=== PATIENT | female | born 1995 | race Asian ===

== ENCOUNTER 2019-02-05 07:06 | Inpatient (IN) | payer BC ==
[2019-02-05 07:42] VITALS: BMI 24.7
[2019-02-05] MEDS ORDERED: Ondansetron PF 4 MG/2 ML Vial IVP PRN ×4 (07:56→19:41)
[2019-02-05] MEDS ORDERED: Acetaminophen 500 MG TAB PO PRN (07:56)
[2019-02-05] MEDS ORDERED: Methylergonovine 0.2 MG/ML VIAL IM PRN (07:56)
[2019-02-05] MEDS ORDERED: NS / Oxytocin 40 units/1000ml 1,000 ML IV PRN (07:56)
[2019-02-05] MEDS ORDERED: Lidocaine 1% (PF) 30 ML VIAL SC PRN (07:56)
[2019-02-05] MEDS ORDERED: Diphenoxylate HCl/Atropine Tablet PO PRN ×2 (07:56)
[2019-02-05] MEDS ORDERED: Butorphanol Tartrate 1 MG/ML VIAL SLOW IVP PRN (07:56)
[2019-02-05] MEDS ORDERED: Ibuprofen 800 MG TAB PO PRN (07:56)
[2019-02-05] MEDS ORDERED: Carboprost 250 MCG/ML AMP IM PRN (07:56)
[2019-02-05] MEDS ORDERED: Misoprostol 200 MCG TAB PR PRN (07:56)
[2019-02-05] MEDS ORDERED: HYDROcodone/Acetaminophen 5/325 mg Tablet PO PRN ×4 (07:56→19:41)
[2019-02-05] MEDS ORDERED: Promethazine HCl 25 MG/ML VIAL IM PRN ×4 (07:56→19:41)
[2019-02-05] MEDS: Lactated Ringer's 1,000 ML IV SCH ×2 (08:30→10:03)
[2019-02-05 08:49] LABS: Hemoglobin 13.9 g/dL (12.0-16.0); Mean Corpuscular HGB CONC 33.7 g/dL (32.0-36.0); Mean Corpuscular Hemoglobin 31.1 pg (27.0-31.0); Mean Corpuscular Volume 92.5 fL (78.0-98.0); Mean Platelet Volume 9.5 fL (7.4-10.4); Platelet Count 202 thou/uL (130-400); RBC Distribution Width 12.2 % (11.5-14.5); Red Blood Cell (RBC) Count 4.46 mill/uL (4.20-5.40); White Blood Cell (WBC) Count 15.9 thou/uL (4.8-10.8)
[2019-02-05] MEDS ORDERED: Fentanyl 4 mcg/Bup 0.1% Cadd 100 ML ONE (09:02)
[2019-02-05 09:25] LABS: HBSAg Index 0.26 S/CO (0-0.99); Hep B Surf Ag Non-Reactive S/CO (NonReactive); Syphilis Antibody Nonreactive (Nonreactive); Syphilis Antibody Index 0.03 S/CO (<1.00 Non-Reactive)
[2019-02-05] MEDS ORDERED: Lidocaine 1.5%/Epinephrine 1:200,000 5 ML AMPUL IJ ONE (11:08)
[2019-02-05] MEDS ORDERED: diphenhydrAMINE 50 MG/ML VIAL IVP PRN ×2 (12:02→17:20)
[2019-02-05] MEDS ORDERED: Naloxone HCl 0.4 mg/ml Vial IVP PRN ×2 (12:02)
[2019-02-05] MEDS ORDERED: ePHEDrine/0.9% NaCl/PF SYRINGE 50 mg/10 ml SLOW IVP PRN (12:02)
[2019-02-05] MEDS ORDERED: Eucerin (Mineral Oil/Petrolatum,White) 30 gm Jar TOP PRN (12:02)
[2019-02-05] MEDS ORDERED: Lactated Ringer's 500 ML IV PRN (12:02)
[2019-02-05] MEDS ORDERED: Acetaminophen 325 MG TAB PO PRN ×2 (12:02→19:41)
[2019-02-05] MEDS ORDERED: Communication Order-Pharmacy FS SCH ×2 (12:15→17:30)
[2019-02-05] MEDS ORDERED: Fentanyl 4 mcg/Bupivacaine 0.1% Cassette 100 ML EPIDURAL SCH (12:15)
[2019-02-05] MEDS ORDERED: NS w/ Oxytocin 10 units 500 ML ONE (13:10)
[2019-02-05] MEDS ORDERED: Succinylcholine Chloride 20 MG/ML 10 ml SYRINGE FS ONE (14:49)
[2019-02-05] MEDS ORDERED: PROPOFOL 200 MG/20 ML VIAL ONE (14:49)
[2019-02-05] MEDS ORDERED: Lidocaine 1.5%/Epinephrine 1:200,000 5 ML AMPUL IJ SCH (15:15)
[2019-02-05] MEDS ORDERED: NS w/ Oxytocin 10 units 500 ML IVPB SCH (15:15)
[2019-02-05] MEDS ORDERED: Bicitra 30 ML UDCUP PO SCH (16:15)
[2019-02-05] MEDS ORDERED: CEFAZOLIN 2 GM in Premix Bag 1 BAG IVPB SCH (16:15)
[2019-02-05] MEDS ORDERED: Bicitra 30 ML UDCUP ONE (16:20)
[2019-02-05] MEDS ORDERED: Lidocaine 2% PF 5 ML VIAL ONE (16:22)
--- NOTE | 2019-02-05 16:35 | PDOC.LDHP ---
Labor and Delivery H&P Chief complaint: contractions HPI: 23yo at 40w0d by LMP presented c/o contractions since early this am. AROM by Kirit around 10am, meconium fluid. Contractions have spaced and baby is having lates after almost every contraction for the last 2 hours despite resuscitative efforts. Current gestational age (weeks): 40 Due date: 02/05/19 Dating criteria: last menstrual period Grav: 1 Para: 0 Current complications: none Abnormal US findings: No Past Medical History: denies Current medications: pre- vitamins Previous surgical history: other (wisdom teeth) Allergies/Adverse Reactions: Allergies Allergy/AdvReac Type Severity Reaction Status Date / Time No Known Allergies Allergy Verified 02/05/19 07:43 Social history: none - Physical Exam Vital signs reviewed and normal: yes General: NAD Heart: RRR Lungs: CTAB Abdomen: gravid Extremeties: no edema FHT: category 2, late decelerations Manteno contractions every: 6-7min - Vaginal Exam cm dilated: 5 Effacement: 100% Station: 0 - OB Labs Blood type: A RH: positive Antibody Screen: negative HIV: negative RPR: negative HEPSAg: negative 1 hour GCT: negative GBS: negative Urine drug screen: negative Rubella: immune - Assessment L&D Assessment: term patient in labor (with NRFHT) - Plan Plan: admit to L&D, to OR for section, informed consent obtained, anesthesia consult for pain management -: Discussed dispo for PCS for NRFHT remote from delivery, despite resuscitative efforts including risks and benefits. Pt agrees to proceed. All questions answered
[2019-02-05] MEDS ORDERED: ePHEDrine/0.9% NaCl/PF SYRINGE 50 mg/10 ml ONE (16:36)
[2019-02-05] MEDS ORDERED: Oxytocin 10 UNITS/ML VIAL ONE (16:37)
[2019-02-05] MEDS ORDERED: Midazolam HCl 2 mg/2 ml Vial ONE (16:50)
[2019-02-05] MEDS ORDERED: Fentanyl 100 MCG/2 ML VIAL ONE ×2 (16:50→17:16)
[2019-02-05] MEDS ORDERED: diphenhydrAMINE 50 MG/ML VIAL IM PRN (17:20)
[2019-02-05] MEDS ORDERED: diphenhydrAMINE 25 MG CAP PO PRN ×2 (17:20→19:41)
[2019-02-05] MEDS ORDERED: Zolpidem Tartrate 5 MG TAB PO PRN (17:20)
[2019-02-05] MEDS ORDERED: fentaNYL Citrate/PF 2,000 MCG in Sodium Chloride 0.9% 60 ML IV PRN (17:20)
[2019-02-05] MEDS ORDERED: Naloxone HCl 0.4 mg/ml Vial IV PRN (17:20)
--- NOTE | 2019-02-05 17:30 | PDOC.OPDEL ---
OB Operative/Delivery Note Delivery Dr/Surgeon: Danna Assist: Pacheco PGY3 Pre-Delivery Diagnosis: active labor, non-reassuring tracing Procedure/Post Delivery Dx: primary low transverse CS Weeks gestation: 40 Anesthesia: other (general) - Findings A Sex: male - 1 min: 8 - 5 min: 9 - Additional Findings/Plan Placenta delivered: manual removal findings: low transverse hysterotomy without extension, normal uterus, normal tubes, normal ovaries Estimated blood loss: 800 Compilations/Other Findings: Nuchal/body cord x 1, thick mec Post delivery plan: routine recovery
[2019-02-05] MEDS ORDERED: HYDROmorphone 2 MG/ML VIAL SLOW IVP PRN (17:49)
[2019-02-05] MEDS ORDERED: Meperidine HCl/PF 25 MG/ML VIAL SLOW IVP PRN (17:49)
[2019-02-05] MEDS ORDERED: Ondansetron HCl/PF 4 MG/2 ML Vial IVP PRN (17:49)
[2019-02-05] MEDS ORDERED: L&D-Morphine 4 MG/ML VIAL SLOW IVP PRN (17:49)
[2019-02-05] MEDS ORDERED: Ketorolac Tromethamine 30 MG/ML VIAL IVP SCH (18:00)
--- NOTE | 2019-02-05 18:12 | OP ---
DATE OF PROCEDURE: 02/05/2019 PREOPERATIVE DIAGNOSES: 1. Intrauterine at 40 weeks and zero days. 2. Spontaneous onset of labor. 3. Non-reassuring heart tones. 4. Thick meconium. POSTOPERATIVE DIAGNOSES: 1. Intrauterine at 40 weeks and zero days. 2. Spontaneous onset of labor. 3. Non-reassuring heart tones. 4. Thick meconium. PROCEDURE PERFORMED: Primary low-transverse section via Pfannenstiel skin incision. ANESTHESIA: General endotracheal. HYDROGRAPHIC ENGINEER SURGEON: Caterina Bergman, PGY-3. ESTIMATED BLOOD LOSS: 800 mL. COMPLICATIONS: None. DRAINS: Barry catheter. PATHOLOGY: Placenta. FINDINGS: Male infant, cephalic presentation with significant caput and molding. Thick meconium 8/9. weight is currently pending. Hysterotomy without extension. Normal uterus, ovaries, and tubes bilaterally. OPERATIVE TECHNIQUE: The patient was taken to the operating room, where epidural anesthesia was found to be inadequate. After repeat bolusing, the decision was made for general anesthetic as the patient had no relief whatsoever of her pain with the epidural. The patient was prepped and draped in a sterile fashion in the dorsal supine position with a leftward tilt. General anesthesia was induced and Pfannenstiel skin incision was made and carried down to the underlying subcutaneous tissue with a knife. The fascia was nicked in midline with a knife and carried laterally with Kamara scissors. The subcutaneous bleeders were cauterized with the Bovie and the superior aspect of the fascia was tented with two Enedelia's and dissected off the rectus bluntly. The inferior aspect of the fascia was tented with two Enedelia's and dissected off the rectus down the pubic symphysis. The rectus was divided in the midline and the peritoneum was bluntly entered into manually retracted. The Jay O retractor was placed. The vesicouterine peritoneum was identified and incised with the Metzenbaum scissors to create the bladder flap. Lower uterine segment was incised in a transverse fashion and extended with a Brunson maneuver. The infant's head was brought to the hysterotomy and delivered atraumatically with fundal pressure followed by the body. Delayed cord clamping was performed. The was vigorous and the infant's cord was clamped and the infant handed to the waiting Jun Team. The cord gas and cord blood were obtained; however, there was scant blood left in the cord. Placenta was allowed to spontaneously deliver. The uterus was exteriorized, cleared of all clots and debris, and the hysterotomy was clamped with ring forceps. The uterus was placed back into the abdomen and the hysterotomy was repaired with #1 Monocryl in a running locking fashion. A second imbricating layer of #1 Monocryl was also placed and hemostasis was noted to be excellent. Irrigation of the pelvis was performed followed by suctioning. There again was noted to be hemostatic. The rectus muscles were then examined and noted to be hemostatic. The fascia was repaired with 0 PDS x2 sutures with excellent reapproximation. The subcutaneous tissue was irrigated and cauterized of any bleeders and reapproximated with 2-0 plain gut in a running fashion. The skin was closed with 4-0 Monocryl in a subcuticular fashion. Dermabond was applied. The patient tolerated procedure well. Sponge and needle counts were correct x2. The patient was taken to recovery room in stable condition. The patient received Ancef 2 g prior to the procedure. Job ID: [id number] [facility]
[2019-02-05] MEDS ORDERED: Ondansetron PF 4 MG/2 ML Vial ONE (19:28)
[2019-02-05] MEDS ORDERED: Lanolin Ointment 7 GM TUBE TOP PRN (19:41)
[2019-02-05] MEDS ORDERED: Bisacodyl 10 MG SUPP PR PRN (19:41)
[2019-02-05] MEDS ORDERED: Meperidine HCl/PF 25 MG/ML VIAL IM PRN (19:41)
[2019-02-06] MEDS: Lactated Ringer's 1,000 ML IV SCH (02:10)
[2019-02-06] MEDS: Ferrous Sulfate 325 MG TAB PO SCH ×3 (06:08→21:45)
[2019-02-06] MEDS: Ibuprofen 800 MG TAB PO SCH ×3 (06:08→21:45)
[2019-02-06] MEDS: Docusate Calcium (SURFAK) 240 MG CAP PO SCH ×3 (06:09→21:45)
--- NOTE | 2019-02-06 07:44 | PDOC.PP ---
Post Progress Note Post Day #: 1 PO intake tolerated: no Flatus: no Ambulation: no Vital Signs (12 hours) Temp Pulse Resp BP Pulse Ox 02/06/19 06:00 99.6 F 102 H 17 118/58 L 02/06/19 01:30 99.6 F 99 17 121/65 02/05/19 21:00 99.6 F 100 17 112/55 L 02/05/19 20:00 98 Weight Weight 127 lb - Physical Examination General: NAD Cardiovascular: RRR Respiratory: clear to auscultation bilaterally Abdominal: no distention Deviation from normal: fundal tenderness Fundus firm & at: umb Extremities: negative homans (B) Skin: CS incision dry & intact Neurological: no gross focal deficits Psychiatric: normal affect Result Diagrams: 02/06/19 07:26 Additional Labs: Post Labs Blood Type A POSITIVE 02/05/19 09:04 Hep Bs Antigen Non-Reactive S/CO (NonReactive) 02/05/19 08:37 - Assessment/Plan POD1 s/p PCS for NRFHT VSSAF, mild tachy and low grade temp this am. Fundal tenderness, with patients abn vital signs will start empiric rocephin for endometritis. Hgb pending this am, no symptoms of anemia. 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
[2019-02-06 07:59] LABS: Hemoglobin 10.7 g/dL (12.0-16.0); Mean Corpuscular HGB CONC 34.1 g/dL (32.0-36.0); Mean Corpuscular Hemoglobin 31.2 pg (27.0-31.0); Mean Corpuscular Volume 91.5 fL (78.0-98.0); Mean Platelet Volume 9.2 fL (7.4-10.4); Platelet Count 169 thou/uL (130-400); RBC Distribution Width 12.1 % (11.5-14.5); Red Blood Cell (RBC) Count 3.43 mill/uL (4.20-5.40); White Blood Cell (WBC) Count 17.9 thou/uL (4.8-10.8)
[2019-02-06] MEDS ORDERED: Adacel (T-DAP) 0.5 ML SYRINGE IM ONE (09:00)
[2019-02-06] MEDS ORDERED: Sodium Chloride 0.9% 10 ML ONE (12:54)
[2019-02-06] MEDS: cefTRIAXone\\ROCEPHIN 1 GM in Sodium Chloride 0.9% 100 ML IVPB SCH (13:09)
[2019-02-06] MEDS: HYDROcodone/Acetaminophen 5/325 mg Tablet PO PRN ×2 (13:18→18:18)
[2019-02-06] MEDS: Prenatal Vitamin 1 TAB PO SCH (13:58)
[2019-02-07] MEDS: HYDROcodone/Acetaminophen 5/325 mg Tablet PO PRN ×4 (00:08→21:50)
[2019-02-07] MEDS: Ibuprofen 800 MG TAB PO SCH ×3 (05:31→21:49)
[2019-02-07] MEDS: Simethicone Chewable 80 MG TAB PO PRN (06:13)
--- NOTE | 2019-02-07 08:22 | PDOC.PP ---
Post Progress Note Post Day #: 2 PO intake tolerated: yes Flatus: yes Ambulation: yes Vital Signs (12 hours) Temp Pulse Resp BP Pulse Ox 02/07/19 07:57 98.6 F 82 16 104/51 L 98 02/07/19 04:25 98.7 F 86 20 121/66 02/07/19 00:05 98.4 F 84 18 125/74 99 02/06/19 20:25 98.0 F 92 18 111/58 L 96 Weight Weight 127 lb - Physical Examination General: NAD Respiratory: non-labored breathing Abdominal: no distention, appropriately TTP Fundus firm & at: umb-2 Extremities: negative homans (B) Skin: no rash Neurological: no gross focal deficits Psychiatric: normal affect Result Diagrams: 02/06/19 07:26 Additional Labs: Post Labs Blood Type A POSITIVE 02/05/19 09:04 Hep Bs Antigen Non-Reactive S/CO (NonReactive) 02/05/19 08:37 - Assessment/Plan POD2 s/p PCS for NRFHT VSSAF Metritis- afebrile, pulse improved, s/p rocephin x 1, tenderness improving. Cont x24 more hours then DC Met all postop milestones Rh pos RImm Cont Postop care.
[2019-02-07] MEDS: Prenatal Vitamin 1 TAB PO SCH (10:40)
[2019-02-07] MEDS: Ferrous Sulfate 325 MG TAB PO SCH ×2 (10:40→21:52)
[2019-02-07] MEDS: Docusate Calcium (SURFAK) 240 MG CAP PO SCH ×2 (10:41→21:49)
[2019-02-07] MEDS ORDERED: Sodium Chloride 0.9% 10 ML ONE (12:05)
[2019-02-07] MEDS: cefTRIAXone\\ROCEPHIN 1 GM in Sodium Chloride 0.9% 100 ML IVPB SCH (12:17)
[2019-02-08] MEDS: Ibuprofen 800 MG TAB PO SCH (05:33)
[2019-02-08] MEDS: HYDROcodone/Acetaminophen 5/325 mg Tablet PO PRN ×2 (05:33→13:16)
[2019-02-08] MEDS: Simethicone Chewable 80 MG TAB PO PRN (05:34)
--- NOTE | 2019-02-08 09:25 | PDOC.PP ---
Post Progress Note Post Day #: 3 Subjective: doing well, no NV, min pain, ready for DC today PO intake tolerated: yes Flatus: yes Ambulation: yes Vital Signs (12 hours) Temp Pulse Resp BP Pulse Ox 02/08/19 08:25 98.2 F 90 20 113/64 100 02/08/19 03:50 97.9 F 91 18 115/62 02/08/19 01:10 98.8 F 89 18 106/58 L Weight Weight 127 lb - Physical Examination General: NAD Respiratory: non-labored breathing Skin: CS incision dry & intact Psychiatric: A&Ox3, normal affect Result Diagrams: 02/06/19 07:26 Additional Labs: Post Labs Blood Type A POSITIVE 02/05/19 09:04 Hep Bs Antigen Non-Reactive S/CO (NonReactive) 02/05/19 08:37 - Assessment/Plan POD3 sp CS, doing well, post op goals met. Pain med use reviewed.
[2019-02-08] MEDS: Prenatal Vitamin 1 TAB PO SCH (09:46)
[2019-02-08] MEDS: Docusate Calcium (SURFAK) 240 MG CAP PO SCH (09:46)
[2019-02-08] MEDS: Ferrous Sulfate 325 MG TAB PO SCH (09:46)
[2019-02-08 11:55] VITALS: BP 120/76; TEMP 98.3
[2019-02-08] MEDS: cefTRIAXone\\ROCEPHIN 1 GM in Sodium Chloride 0.9% 100 ML IVPB SCH (13:14)
== END 2019-02-08 14:10 | disposition home or self-care (01) | DRG 788 ==
LOC: L&D/OP 07:06 → L&D 08:07 → 3SW 20:35
PROVIDERS: ADMIT Student in an Organized Health Care Education/Training Program; ATTEND Student in an Organized Health Care Education/Training Program
PROC: 10D00Z1 Extraction of Products of Conception, Low, Open Approach (ICD-10-PCS; principal; 2019-02-05)
DX: O76 Abnormality in fetal heart rate and rhythm complicating labor and delivery (principal); O48.0 Post-term pregnancy; O77.0 Labor and delivery complicated by meconium in amniotic fluid; O69.81X0 Labor and delivery complicated by cord around neck, without compression, not applicable or unspecified; Z3A.40 40 weeks gestation of pregnancy; Z37.0 Single live birth
CPT/HCPCS: 36415; 51702; 85027; 86780; 86850; 86900; 86901; 87340; 88307; 99285; J0696; J2001; J2250; J2405; J2590; J2704; J3010; J3490; J7050; Q0163